=== PATIENT | female | born 1995 | race Caucasian/White ===

== ENCOUNTER 2016-02-25 16:16 | Emergency (ER) | payer SELFPAY ==
--- NOTE | 2016-02-25 17:34 | ED ORDER SUMMARY ---
..... Patient: DANETTE LEIVA OrderSheet [facility] VisitID: [id number] [place] [address] 20y, F Registration Date/Time: 02/25/2016 ORDER SHEET Weight: 58.9 kg (stated) Allergies: Penicillin GENERAL ORDERS: UA-Culture if indicated Urgent (16:37 02/25/2016 EKoroleva P.A.-C) (Ack 16:40 LTapper) Urine Urgent (16:37 02/25/2016 EKoroleva P.A.-C) (Ack 16:40 LTapper) Wet Prep (Cervix) (c) Urgent (16:44 02/25/2016 EKoroleva P.A.-C) GC/Chlamydia (Cervix) (c) Urgent (16:44 02/25/2016 EKoroleva P.A.-C) MEDICATION ORDERS: IV FLUIDS: ORDER SHEET NOTES: [Electronically signed by Jessi Geller.A.-C (19:20 02/25/2016)] [Electronically signed by Bri Dean R.N. (15:08 02/29/2016)] [Electronically locked/signed by Bri Dean R.N. (15:02/29/2016)]
--- NOTE | 2016-02-25 17:34 | ED CLINICAL REPORT ---
Clinical Report - Physicians/Mid Levels [facility] [address] [place] [address] 02/25/2016 16:16 Patient: DANETTE LEIVA Time Seen: 16:30 Feb 25 2016. Arrived- By private vehicle. HISTORY OF PRESENT ILLNESS Chief Complaint: VAGINAL DISCHARGE. 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 No pelvic pain, vaginal pain, pain with urination or urinary frequency. (patient reports last menses about 3 weeks previously, after her menses has had discharge. Reports sexually active, with unprotected heterosexual activity. Denies urgency or frequency or back pain.). REVIEW OF SYSTEMS No vomiting, headache, chills or skin rash. All systems otherwise negative, except as recorded above. ADDITIONAL NOTES The nursing notes have been reviewed. PHYSICAL EXAM Vital Signs: 02/25/2016 16:34 BP: 119/65. HR: 111. RR: 20. O2 saturation: 98%. Temp: 99.8 F. Pain level now: 5/10. Appearance: Alert. HEENT: Normal external inspection. CVS: Heart sounds normal. Respiratory: No respiratory distress. Breath sounds normal. Chest nontender. Abdomen: Soft and nontender. Bowel sounds normal. No abdominal tenderness, rebound tenderness, distention or mass present. Skin: Skin warm. Normal skin color. PROGRESS AND PROCEDURES Course of Care: Patient eloped prior to completion of her lab workup as well as a pelvic exam, and testing for any sexual transmitted diseases. CLINICAL IMPRESSION Vaginal Discharge ELoped. (Electronically signed by Jessi Geller P.A.-C 02/25/2016 19:20)
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
--- NOTE | 2016-02-25 17:34 | ED ORDER SUMMARY ---
..... Patient: DANETTE LEIVA OrderSheet [facility] VisitID: [id number] [place] [address] 20y, F Registration Date/Time: 02/25/2016 ORDER SHEET Weight: 58.9 kg (stated) Allergies: Penicillin GENERAL ORDERS: UA-Culture if indicated Urgent (16:37 02/25/2016 EKoroleva P.A.-C) (Ack 16:40 LTapper) Urine Urgent (16:37 02/25/2016 EKoroleva P.A.-C) (Ack 16:40 LTapper) Wet Prep (Cervix) (c) Urgent (16:44 02/25/2016 EKoroleva P.A.-C) GC/Chlamydia (Cervix) (c) Urgent (16:44 02/25/2016 EKoroleva P.A.-C) MEDICATION ORDERS: IV FLUIDS: ORDER SHEET NOTES: [Electronically signed by Jessi Geller.A.-C (19:20 02/25/2016)] [Electronically signed by Bri Dean R.N. (15:08 02/29/2016)] [Electronically locked/signed by Bri Dean R.N. (15:02/29/2016)]
--- NOTE | 2016-02-25 17:34 | ED CLINICAL REPORT ---
Clinical Report - Physicians/Mid Levels [facility] [address] [place] [address] 02/25/2016 16:16 Patient: DANETTE LEIVA Time Seen: 16:30 Feb 25 2016. Arrived- By private vehicle. HISTORY OF PRESENT ILLNESS Chief Complaint: VAGINAL DISCHARGE. 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 No pelvic pain, vaginal pain, pain with urination or urinary frequency. (patient reports last menses about 3 weeks previously, after her menses has had discharge. Reports sexually active, with unprotected heterosexual activity. Denies urgency or frequency or back pain.). REVIEW OF SYSTEMS No vomiting, headache, chills or skin rash. All systems otherwise negative, except as recorded above. ADDITIONAL NOTES The nursing notes have been reviewed. PHYSICAL EXAM Vital Signs: 02/25/2016 16:34 BP: 119/65. HR: 111. RR: 20. O2 saturation: 98%. Temp: 99.8 F. Pain level now: 5/10. Appearance: Alert. HEENT: Normal external inspection. CVS: Heart sounds normal. Respiratory: No respiratory distress. Breath sounds normal. Chest nontender. Abdomen: Soft and nontender. Bowel sounds normal. No abdominal tenderness, rebound tenderness, distention or mass present. Skin: Skin warm. Normal skin color. PROGRESS AND PROCEDURES Course of Care: Patient eloped prior to completion of her lab workup as well as a pelvic exam, and testing for any sexual transmitted diseases. CLINICAL IMPRESSION Vaginal Discharge ELoped. (Electronically signed by Jessi Geller P.A.-C 02/25/2016 19:20)
--- NOTE | 2016-02-29 15:09 | ED MAR SUMMARY ---
..... Medication Administration Record [facility] [address], [place] [id number] Patient: DANETTE LEIVA Visit ID: [id number] 20y, F Weight: 58.9 kg Height/Length: 64 in BMI: 22.3 ALLERGIES: Penicillin
--- NOTE | 2016-02-29 15:09 | ED DISCHARGE INSTRUCTIONS ---
Patient: DANETTE LEIVA General Instructions [facility] VisitID: [id number] [address] [place] [address] 20y, F Registration Date/Time: 02/25/2016 Vaginal Discharge ELoped. (Electronically signed by Jessi Geller P.A.-C 02/25/2016 19:20)
--- NOTE | 2016-02-29 15:09 | ED MED RECONCILIATION SUMMARY ---
Patient: DANETTE LEIVA Medication Reconciliation Report [facility] VisitID: [id number] [address] [place] [address] 20y, F Registration Date/Time: 02/25/2016 Weight: 58.9 kg Height/Length: 64 in. BMI: 22.3 ALLERGIES: Penicillin The patient's Home Medications are listed below: NONE. The source(s) of the original Home Medication information: patient The following Medications were given to the patient in the Emergency Department: None. The following Medications were prescribed to the patient: None.
--- NOTE | 2016-02-29 15:09 | ED MED RECONCILIATION SUMMARY ---
Patient: DANETTE LEIVA Medication Reconciliation Report [facility] VisitID: [id number] [address] [place] [address] 20y, F Registration Date/Time: 02/25/2016 Weight: 58.9 kg Height/Length: 64 in. BMI: 22.3 ALLERGIES: Penicillin The patient's Home Medications are listed below: NONE. The source(s) of the original Home Medication information: patient The following Medications were given to the patient in the Emergency Department: None. The following Medications were prescribed to the patient: None.
--- NOTE | 2016-02-29 15:09 | ED DISCHARGE INSTRUCTIONS ---
Patient: DANETTE LEIVA General Instructions [facility] VisitID: [id number] [address] [place] [address] 20y, F Registration Date/Time: 02/25/2016 Vaginal Discharge ELoped. (Electronically signed by Jessi Geller P.A.-C 02/25/2016 19:20)
--- NOTE | 2016-02-29 15:09 | ED MAR SUMMARY ---
..... Medication Administration Record [facility] [address] [place], [place] [id number] Patient: DANETTE LEIVA Visit ID: [id number] 20y, F Weight: 58.9 kg Height/Length: 64 in BMI: 22.3 ALLERGIES: Penicillin
== END 2016-02-25 17:34 | disposition left against medical advice (07) ==
LOC: ED SRH 16:16
DX: N89.8 Other specified noninflammatory disorders of vagina (principal)